=== PATIENT | female | born 1960 | race Caucasian/White ===

== ENCOUNTER 2024-04-22 07:17 | Emergency (ER) | payer MEDICAID, SELFPAY ==
[2024-04-22 07:20] VITALS: BP 127/88
--- NOTE | 2024-04-22 08:31 | ED.GENMED ---
History of Present Illness
General
Chief Complaint: Ear Problem
Source: patient
Time Seen by Provider: 04/22/24 08:19
History of Present Illness
History of Present Illness:
63-year-old female with past medical history of COPD, hypertension, hyperlipidemia, CHF, previous alcohol abuse presenting to the ER from [facility] where she is a long-term resident for evaluation after she noticed right-sided ear pain for about 1
week, had bleeding from the right ear earlier in the week but states no one did anything for her at [facility] which is why she ER. Patient denies any fevers or URI-like symptoms. She does note a sensation of fullness to the right ear as well as
states feels as if she has a little bit lightheadedness. She states she did not stick anything into her ear prior to the symptoms starting. Denies any history of similar. Denies any headaches, visual changes, focal weakness or numbness
Past History
Past History
ED Past Medical History: Asthma, CHF, COPD, HTN, Hypercholesterolemia and Other (History of alcohol abuse)
ED Past Surgical History:
Social History
Tobacco: Smoker
Alcohol: Chronic alcoholic
Drug: None
Review of Systems
Review of Systems
All Other Systems: ROS reviewed and negative except as documented in HPI and ROS
Phy Exam
Physical Exam
Physical Exam:
GENERAL: Alert , in no apparent distress
EYE: conjunctiva clear
Head: Normocephalic atraumatic
NECK: Supple, No lymphadenopathy, no rashes or lesions
ENT: mmm. No tonsillar edema or exudates, right auditory canal does have dried blood within the canal but able to visualize the TM which does not show any perforations or effusions, no erythema. Left TM and canal is within normal limits
LUNGS: no acute respiratory distress
NEUROLOGICAL: Alert and oriented
SKIN: Warm and dry, skin intact.
MUSCULOSKELETAL: well perfused.
PSYCH: Normal and appropriate interaction.
Scores
Heart Failure Risk
Heart Failure Risk Score: Not Applicable
Heart Score for Chest Pain Patients
STEMI patient?: Not applicable
Withdrawal Assessment of Alcohol
Withdrawal Assessment Completed?: Not applicable
Course
Vital Signs
Initial and Last Documented VS:
Initial Vital Signs
Temp Pulse Resp BP Pulse Ox
97.8 F 93 18 127/88 96
04/22/24 07:20 04/22/24 07:20 04/22/24 07:20 04/22/24 07:20 04/22/24 07:20
Last Documented Vital Signs
Temp Pulse Resp BP Pulse Ox
97.8 F 87 16 119/86 97
04/22/24 07:20 04/22/24 10:15 04/22/24 10:15 04/22/24 10:15 04/22/24 10:15
MDM/Problems Addressed
Differential Diagnosis Includes:
Otitis media, otitis externa, TM perforation, foreign body, less concern for mastoiditis, shingles, vascular etiology
MDM/Problems Addressed:
63-year-old female presenting to the ER for evaluation of right-sided otalgia for a few days, noticed a bloody discharge from the ear which seems to have since resolved but patient still noting some discomfort. Exam does reveal dried blood within
the auditory canal on the right. No other emergent pathologies identified at this time. Will trial Sudafed and nasal spray to see if this helps with symptomatic relief of right ear pressure. Information for ENT provided. Patient advised on
return precautions to the ER. Stable for discharge.
*Pulse Oximetry
Patient hypoxic: no
*Critical Care Note
Total Time (30-74mins, 75-104mins- exclusive of procedures): Not Applicable
Data Reviewed
Further Testing Considered But Not Given:
I did consider obtaining CT scan of the head for mastoiditis or any other potential infectious etiologies however based off patient's amount work physical exam there does not appear to be any concern for this diagnosis.
Patient Management
Social determinants of health affecting care: Living situation
ED Attending Note
-
Portions of this chart may have been created with voice recognition software.� Occasional wrong word or��sound alike� substitutions may have occurred due to the inherent limitations of voice recognition software.
Discharge Plan
Departure
Patient Disposition: Home (Routine Discharge)
Date of Disposition: 04/22/24
Time of Disposition: 08:31
Patient with high blood pressure during this ER visit?: No
Discharge Problem:
Otalgia, right ear, Bleeding from right ear
Instructions: Ear pain - ED discharge instructions
Prescriptions:
New
pseudoephedrine HCl [Sudafed] 30 mg tablet
30 mg PO BID 5 Days Qty: 10 0RF
mometasone [Nasonex 24hr Allergy] 50 mcg/actuation spray,non-aerosol
2 spray intranasal DAILY Qty: 17 0RF
No Action
atorvastatin 20 mg Tablet
20 mg PO HS
acetaminophen [Acetaminophen Extra Strength] 500 mg Tablet
1,000 mg PO Q6HPRN PRN (Reason: mild pain)
bisacodyl 10 mg Suppository
10 mg ID DAILYPRN PRN (Reason: if mom is ineffective)
calcium polycarbophil [FiberCon] 625 mg Tablet
1,250 mg PO DAILYPRN PRN (Reason: regulating bowels)
folic acid 1 mg Tablet
1 mg PO DAILY
guaifenesin 400 mg Tablet
600 mg PO BID
Patient Comments:
12/23/22 start on 12/21/22 and end on 12/28/22
Biofreeze (menthol) 4 % Gel
1 applic TOPICAL BID
Anoro Ellipta 62.5-25 mcg/actuation Blister With Device
1 inh INHALATION R DAILY
lidocaine 4 % Adhesive Patch,Medicated
1 patch TOPICAL HS
Patient Comments:
12/23/22 [facility]
thiamine HCl (vitamin B1) 100 mg Tablet
100 mg PO DAILY
pantoprazole 40 mg Tablet,Delayed Release (Dr/Ec)
40 mg PO BID
nitroglycerin 0.4 mg Tablet, Sublingual
0.4 mg SUBLINGUAL [id number] PRN (Reason: chest pain)
nystatin 100,000 unit/gram Powder
1 applic TOPICAL BID
albuterol sulfate [Proventil HFA] 90 mcg/actuation Hfa Aerosol Inhaler
2 puff INHALATION R Q6HPRN PRN (Reason: wheezing)
multivitamin with iron-mineral Tablet
1 tab PO DAILY
zinc oxide 10 % Cream
1 applic TOPICAL Q8H
rivaroxaban 20 mg Tablet
20 mg PO QPM
ferrous gluconate 325 mg (37.5 mg iron) Tablet
325 mg PO DAILY
amiodarone [Pacerone] 200 mg Tablet
200 mg PO DAILY 30 Days Qty: 30 0RF
levetiracetam 250 mg Tablet
750 mg PO BID 30 Days Qty: 180 0RF
gabapentin 300 mg Capsule
300 mg PO TID 30 Days Qty: 90 0RF
torsemide 20 mg Tablet
20 mg PO BID Qty: 0 0RF
potassium chloride 20 mEq Tablet Extended Release
20 meq PO DAILY Qty: 0 0RF
Rx Instructions:
hold if not taking diuretic such as torsemide or lasix
Referrals:
NONE,* [Family Provider] -
Edson Buck MD [Active] -
Interventions
Interventions:
*Risk Screen - Suicide Last Done: 04/22/24 07:20
*General Assessment Last Done: 04/22/24 07:20
*Neglect/Abuse Screening Last Done: 04/22/24 07:20
*ED COVID-19 Vaccine History Last Done: 04/22/24 07:20
*Nursing Disposition Last Done: 04/22/24 10:16
Discharge Date and Time
Discharge Date/Time: 04/22/24 10:46
Print Language: CROATIAN
[2024-04-22 10:15] VITALS: BP 119/86
== END 2024-04-22 10:46 | disposition home or self-care (01) ==
LOC: EMR 07:17
PROVIDERS: EMERGENCY PHYSICIAN Emergency Medicine
DX: H92.01 Otalgia, right ear (principal); H92.21 Otorrhagia, right ear; R42 Dizziness and giddiness; I11.0 Hypertensive heart disease with heart failure; I50.9 Heart failure, unspecified; E78.00 Pure hypercholesterolemia, unspecified; F17.200 Nicotine dependence, unspecified, uncomplicated; F10.20 Alcohol dependence, uncomplicated; J44.89 Other specified chronic obstructive pulmonary disease; Z88.1 Allergy status to other antibiotic agents; Z91.048 Other nonmedicinal substance allergy status
CPT/HCPCS: 99283